=== PATIENT | male | born 1995 | race Caucasian/White ===

== ENCOUNTER 2023-05-08 09:05 | Emergency (ER) | payer OTHER ==
[~2023-05-08] VITALS: Ht 180 cm; Wt 99.7 kg
[2023-05-08] MEDS ORDERED: NS IV 1000 ML 1,000 ML IV STA (09:20)
--- NOTE | 2023-05-08 09:20 | ED Abdominal Pain ---
General Chief Complaint: Abdominal/GI Problems Stated Complaint: ABD PAIN Source of Information: Patient Exam Limitations: No Limitations History of Present Illness Date Seen by Provider: May 08, 2023 Time Seen by Provider: 09:06 Initial Comments 28-year-old male with no pertinent past medical history coming in due to right lower quadrant abdominal pain. Started over an hour prior to arrival, constant, sharp, radiates to his right groin. Nothing really seems to make it better or worse. He did take ibuprofen this morning. He does have nausea associated with it but no vomiting. Something similar occurred for short period of time a couple weeks ago, but never happened prior to that. Denies any diarrhea, rash, fever, dysuria, hematuria, flank pain, or any other concerns. Allergies and Home Medications Allergies Coded Allergies: No Known Drug Allergies (Unverified , 05/08/23) Patient Home Medication List Home Medication List Reviewed: Yes Hydrocodone/Acetaminophen (Hydrocodone-Acetamin 5-325 mg) 5 Mg-325 Mg Tablet, 1 TAB PO Q6H PRN for PAIN-MODERATE (5-7) Prescribed by: BRYSON HERNANDEZ on 05/08/23 1051 Ketorolac Tromethamine (Ketorolac Tromethamine) 10 Mg Tablet, 10 MG PO Q8H Prescribed by: BRYSON HERNANDEZ on 05/08/23 1050 Ondansetron (Ondansetron Odt) 4 Mg Tab.rapdis, 4 MG SL Q6H PRN for NAUSEA/VOMITING Prescribed by: BRYSON HERNANDEZ on 05/08/23 1050 Tamsulosin HCl (Flomax) 0.4 Mg Cap, 0.4 MG PO DAILY Prescribed by: BRYSON HERNANDEZ on 05/08/23 1050 Review of Systems Review of Systems Constitutional: No fever EENTM: No Symptoms Reported Respiratory: No Symptoms Reported Cardiovascular: No Symptoms Reported Gastrointestinal: See HPI Genitourinary: See HPI Musculoskeletal: no symptoms reported Skin: no symptoms reported Psychiatric/Neurological: No Symptoms Reported Endocrine: No Symptoms Reported Hematologic/Lymphatic: No Symptoms Reported Past Jzenifi-Quqhdh-Ljudpl Hx Patient Social History Tobacco Use?: No Substance use?: No Alcohol Use?: No Pt feels they are or have been: No Past Medical History Surgery/Hospitalization HX: n/a Physical Exam Vital Signs Vital Signs - First Documented 05/08/23 09:15 Temp 36.1 Pulse 71 Resp 16 B/P (MAP) 144/91 (108) Pulse Ox 100 Capillary Refill : Height/Weight/BMI Height: '" Weight: lbs. oz. kg; BMI Method: General Appearance: WD/WN, mild distress HEENT: PERRL/EOMI, normal ENT inspection, pharynx normal Neck: non-tender, full range of motion, supple, normal inspection Respiratory: chest non-tender, lungs clear, normal breath sounds, no respiratory distress, no accessory muscle use Cardiovascular: regular rate, rhythm, no edema, no murmur Gastrointestinal: normal bowel sounds, soft; No distended, No guarding, No rebound; tenderness (RLQ) Genital/Rectal: normal genital exam, other (No testicular swelling or pain) Extremities: normal range of motion, non-tender, normal inspection, no pedal edema, no calf tenderness, normal capillary refill Back: normal inspection, no CVA tenderness Neurologic/Psychiatric: no motor/sensory deficits, alert, normal mood/affect Skin: normal color, warm/dry Progress/Results/Core Measures Results/Orders Lab Results Laboratory Tests Test 05/08/23 09:33 05/08/23 10:02 Range/Units White Blood Count 5.7 4.3-11.0 10^3/uL Red Blood Count 5.45 4.30-5.52 10^6/uL Hemoglobin 15.6 13.3-17.7 g/dL Hematocrit 45 40-54 % Mean Corpuscular Volume 83 80-99 fL Mean Corpuscular Hemoglobin 29 25-34 pg Mean Corpuscular Hemoglobin Concent 34 32-36 g/dL Red Cell Distribution Width 11.9 10.0-14.5 % Platelet Count 272 130-400 10^3/uL Mean Platelet Volume 9.7 9.0-12.2 fL Immature Granulocyte % (Auto) 0 % Neutrophils (%) (Auto) 55 42-75 % Lymphocytes (%) (Auto) 34 12-44 % Monocytes (%) (Auto) 8 0-12 % Eosinophils (%) (Auto) 2 0-10 % Basophils (%) (Auto) 1 0-10 % Neutrophils # (Auto) 3.1 1.8-7.8 10^3/uL Lymphocytes # (Auto) 1.9 1.0-4.0 10^3/uL Monocytes # (Auto) 0.5 0.0-1.0 10^3/uL Eosinophils # (Auto) 0.1 0.0-0.3 10^3/uL Basophils # (Auto) 0.0 0.0-0.1 10^3/uL Immature Granulocyte # (Auto) 0.0 0.0-0.1 10^3/uL Prothrombin Time 13.4 12.2-14.7 SEC INR Comment 1.0 0.8-1.4 Activated Partial Thromboplast Time 23 L 24-35 SEC Sodium Level 137 135-145 MMOL/L Potassium Level 4.1 3.6-5.0 MMOL/L Chloride Level 106 98-107 MMOL/L Carbon Dioxide Level 20 L 21-32 MMOL/L Anion Gap 11 5-14 MMOL/L Blood Urea Nitrogen 15 7-18 MG/DL Creatinine 1.47 H 0.60-1.30 MG/DL Estimat Glomerular Filtration Rate 65 BUN/Creatinine Ratio 10 Glucose Level 129 H 70-105 MG/DL Calcium Level 9.6 8.5-10.1 MG/DL Corrected Calcium 9.2 8.5-10.1 MG/DL Total Bilirubin 1.1 H 0.1-1.0 MG/DL Aspartate Amino Transf (AST/SGOT) 23 5-34 U/L Alanine Aminotransferase (ALT/SGPT) 31 0-55 U/L Alkaline Phosphatase 57 40-136 U/L C-Reactive Protein High Sensitivity 0.12 0.00-0.50 MG/DL Total Protein 7.5 6.4-8.2 GM/DL Albumin 4.5 3.2-4.5 GM/DL Lipase 23 8-78 U/L Urine Color YELLOW Urine Clarity CLEAR Urine pH 8.5 5-9 Urine Specific [place] 1.020 1.016-1.022 Urine Protein 1+ H NEGATIVE Urine Glucose (UA) NEGATIVE NEGATIVE Urine Ketones NEGATIVE NEGATIVE Urine Nitrite NEGATIVE NEGATIVE Urine Bilirubin NEGATIVE NEGATIVE Urine Urobilinogen 0.2 < = 1.0 MG/DL Urine Leukocyte Esterase NEGATIVE NEGATIVE Urine RBC (Auto) 1+ H NEGATIVE Urine RBC 10-25 H /HPF Urine WBC 0-2 /HPF Urine Squamous Epithelial Cells RARE /HPF Urine Crystals NONE /LPF Urine Bacteria TRACE /HPF Urine Casts NONE /LPF Urine Mucus NEGATIVE /LPF Urine Culture Indicated NO My Orders Orders - KRUMSICK,BRYSON K MD Ed Iv/Invasive Line Start (05/08/23 09:17) Ct Abd/Pelv W (Appendicitis) (05/08/23 09:17) Cbc And Automated Diff (05/08/23 09:17) Comprehensive Metabolic Panel (05/08/23 09:17) Hs C Reactive Protein (05/08/23 09:17) Lipase (05/08/23 09:17) Protime With Inr (05/08/23:) Partial Thromboplastin Time (05/08/23 09:17) Ua Culture If Indicated (05/08/23 09:17) Morphine Injection (Morphine Injection (05/08/23 09:30) Ondansetron Injection (Ondansetron Inj (05/08/23 09:30) Ns Iv 1000 Ml (Ns Iv 1000 Ml) (05/08/23 09:20) Iohexol Injection (Omnipaque 350 Mg/Ml 1 (05/08/23 09:30) Received Contrast (Hold Metformin- Contr (05/08/23 09:30) Ns (Ivpb) 100 Ml (Sodium Chloride 0.9% 1 (05/08/23 09:30) Morphine Injection (Morphine Injection (05/08/23 10:36) Ketorolac Injection (Ketorolac Injection (05/08/23 10:45) Ondansetron Injection (Ondansetron Inj (05/08/23 10:50) Ondansetron Injection (Ondansetron Inj (05/08/23 11:00) Medications Given in ED Current Medications Medications Dose Ordered Sig/Maria D Route Start Time Stop Time Status Last Admin Dose Admin Iohexol 100 ml ONCE ONCE IV 05/08/23 09:30 05/08/23 09:31 DC 05/08/23 10:19 80 ML Ketorolac Tromethamine 15 mg ONCE ONCE IVP 05/08/23 10:45 05/08/23 10:46 DC 05/08/23 10:48 15 MG Morphine Sulfate 4 mg ONCE ONCE IVP 05/08/23 09:30 05/08/23 09:31 DC 05/08/23 09:30 4 MG Ondansetron HCl 4 mg ONCE ONCE IVP 05/08/23 09:30 05/08/23 09:31 DC 05/08/23 09:31 4 MG Ondansetron HCl 4 mg ONCE ONCE IVP 05/08/23 11:00 05/08/23 11:01 DC 05/08/23 10:58 4 MG Sodium Chloride 100 ml ONCE ONCE IV 05/08/23 09:30 05/08/23 09:31 DC 05/08/23 10:19 80 ML Vital Signs/I&O 05/08/23 05/08/23 09:15 11:05 Temp 36.1 Pulse 71 85 Resp 16 16 B/P (MAP) 144/91 (108) 122/79 Pulse Ox 100 98 Progress Progress Note : Progress Note 28-year-old male with above history coming in due to right lower quadrant pain radiating to his right groin. ABCs were intact and vitals were stable on presentation. Physical exam with some right lower quadrant pain, normal testicular exam. An IV is placed and basic labs were obtained and were significant for normal white blood cell count, urinalysis with blood but no evidence of infection, slightly elevated creatinine with normal GFR. CT abdomen pelvis ordered to assess for appendicitis versus atypical diverticulitis versus ureterolithiasis. On my interpretation there is a kidney stone with moderate hydronephrosis. He was given morphine IV x2, Zofran, IV fluids, and later Phe nergan for his pain. He was also given IV Toradol. Pain significantly improved. I discussed going through a trial of passage at home and following up with the urologist. Patient is agreeable to this. Prescriptions sent for symptomatic management at home. Diagnostic Imaging Diagonstic Imaging: CT (abd/pelvis) Comments [facility], [place] NAME: PATEL OGLESBY [facility] REC#: [id number] PT STATUS: REG ER : 1995 PHYSICIAN: BRYSON HERNANDEZ MD ADMIT DATE: 05/08/23/ER Signed Date of Exam:05/08/23 CT ABD/PELV W (APPENDICITIS) EXAMINATION: CT abdomen and pelvis with intravenous contrast. TECHNIQUE: Multiple contiguous axial images were obtained through the abdomen and pelvis after the uneventful administration of intravenous contrast. All CT scans use one or more of the following dose optimizing techniques: automated exposure control, MA and/or KvP adjustment based on patient size and exam type or iterative reconstruction. HISTORY: Right lower quadrant pain COMPARISON: None available. FINDINGS: Limited views of the lower thorax show bibasilar atelectasis. The liver is normal without focal lesion. There is no biliary ductal dilation. Gallbladder is normal. Pancreas is normal. Spleen is normal. Adrenal glands are normal. There is a 3.5 cm distal right ureteral stone with moderate right-sided hydroureteronephrosis and a delayed right-sided nephrogram. There are several nonobstructing stones in left kidney. No left-sided hydronephrosis. Urinary bladder is normal. Bowel is normal in caliber without obstruction or inflammation. No free fluid or air. No abdominal or pelvic lymphadenopathy. Aorta is normal in caliber without aneurysm. There are no suspicious osseus lesions. IMPRESSION: 1. Right distal ureteral 3.5 mm obstructing stone with moderate right-sided hydroureteronephrosis. Dictated by: Dictated on workstation # [id number] Dict: 05/08/23 1020 Trans: 05/08/23 1023 [facility] [id number] Interpreted by: WILLA FOLEY MD Electronically signed by: WILLA FOLEY MD 05/08/23 1023 Departure Impression Primary Impression: Ureterolithiasis Disposition: 01 HOME, SELF-CARE Condition: Stable Departure-Patient Inst. Decision time for Depature: 11:10 Referrals: Ernst GRANT MD NO,LOCAL PHYSICIAN (PCP) Primary Care Physician Patient Instructions: Kidney Stone, Adult ED Add. Discharge Instructions: You unfortunately have a 3-1/2 mm kidney stone at the far end of your ureter on the right side, about to pass into the bladder. This causes severe pain, nausea, vomiting. We would want you to do a trial of passage at home trying to get the stone to pass without surgery. Take the ketorolac as needed for pain, do not mix it with other NSAIDs such as ibuprofen. You can start ibuprofen again once this medicine runs out. If you have pain on top of that, you can take the hydrocodone. The ondansetron is for nausea. The tamsulosin is to theoretically help the stone pass easier. Follow-up with Dr. Grant here, or the urologist of your choice. We want you to present back to the ER if you develop fever or if the pain is way out of control despite taking your medicines. Scripts Ondansetron (Ondansetron Odt) 4 Mg Tab.rapdis 4 MG SL Q6H PRN for NAUSEA/VOMITING for 5 Days, #20 TAB Prov: BRYSON HERNANDEZ MD 05/08/23 Hydrocodone/Acetaminophen (Hydrocodone-Acetamin 5-325 mg) 5 Mg-325 Mg Tablet 1 TAB PO Q6H PRN for PAIN-MODERATE (5-7) for 4 Days, #16 TAB Prov: BRYSON HERNANDEZ MD 05/08/23 Ketorolac Tromethamine (Ketorolac Tromethamine) 10 Mg Tablet 10 MG PO Q8H for 4 Days, #12 TAB Prov: BRYSON HERNANDEZ MD 05/08/23 Tamsulosin HCl (Flomax) 0.4 Mg Cap 0.4 MG PO DAILY for 30 Days, #30 CAP Prov: BRYSON HERNANDEZ MD 05/08/23 Work/School Note: Work Release Form Date Seen in the Emergency Department: May 08, 2023 Return to Work: May 10, 2023 Restrictions: No Restrictions BRYSON HERNANDEZ MD May 08, 2023 09:20
[2023-05-08] MEDS ORDERED: IOHEXOL 350 MG/ML 100 ML (OMNIPAQUE 350) VIAL IV ONE (09:30)
[2023-05-08] MEDS ORDERED: HOLD METFORMIN - RECEIVED CONTRAST 20 ML VIAL IV SCH (09:30)
[2023-05-08] MEDS ORDERED: NS 100 ML (IVPB) BAG IV ONE (09:30)
[2023-05-08] MEDS ORDERED: morphine INJ 4 MG/ML 1 ML (VIAL/SYRINGE) IVP ONE (09:30)
[2023-05-08] MEDS ORDERED: ONDANSETRON INJECTION 4 MG/2 ML (SDV) IVP ONE ×2 (09:30→11:00)
[2023-05-08 09:39] LABS: BASOPHILS % (AUTO) 1 % (0-10); EOSINOPHILS # (AUTO) 0.1 10^3/uL (0.0-0.3); EOSINOPHILS % (AUTO) 2 % (0-10); HEMATOCRIT 45 % (40-54); HEMOGLOBIN 15.6 g/dL (13.3-17.7); LYMPHOCYTES # (AUTO) 1.9 10^3/uL (1.0-4.0); LYMPHOCYTES % (AUTO) 34 % (12-44); MEAN CORPUSCULAR HEMOGLOBIN 29 pg (25-34); MEAN CORPUSCULAR HGB CONC 34 g/dL (32-36); MEAN CORPUSCULAR VOLUME 83 fL (80-99); MEAN PLATELET VOLUME 9.7 fL (9.0-12.2); MONOCYTES # (AUTO) 0.5 10^3/uL (0.0-1.0); MONOCYTES % (AUTO) 8 % (0-12); NEUTROPHILS # (AUTO) 3.1 10^3/uL (1.8-7.8); NEUTROPHILS % (AUTO) 55 % (42-75); PLATELET COUNT 272 10^3/uL (130-400); WHITE BLOOD COUNT 5.7 10^3/uL (4.3-11.0)
[2023-05-08 09:49] LABS: ALBUMIN 4.5 GM/DL (3.2-4.5); POTASSIUM 4.1 MMOL/L (3.6-5.0)
[2023-05-08 09:50] LABS: CALCIUM 9.6 MG/DL (8.5-10.1); PROTHROMBIN TIME PATIENT 13.4 SEC (12.2-14.7)
[2023-05-08 09:52] LABS: TOTAL PROTEIN 7.5 GM/DL (6.4-8.2)
[2023-05-08 09:53] LABS: BILIRUBIN,TOTAL 1.1 MG/DL (0.1-1.0)
[2023-05-08 09:55] LABS: CREATININE SERUM 1.47 MG/DL (0.60-1.30)
[2023-05-08 10:16] LABS: COLOR,URINE YELLOW
[2023-05-08 10:17] LABS: BACTERIA,URINE TRACE /HPF; BILIRUBIN,URINE NEGATIVE (NEGATIVE); CLARITY,URINE CLEAR; GLUCOSE, URINE (UA) NEGATIVE (NEGATIVE); KETONES,URINE NEGATIVE (NEGATIVE); LEUKOCYTE ESTERASE ,URINE NEGATIVE (NEGATIVE); NITRITE,URINE NEGATIVE (NEGATIVE); PH,URINE 8.5 (5-9); PROTEIN,URINE 1+ (NEGATIVE); SQUAMOUS EPITHELIAL CELL,UR RARE /HPF; WBC,URINE 0-2 /HPF
--- NOTE | 2023-05-08 10:24 | Diagnostic Imaging Report ---
EXAMINATION: CT abdomen and pelvis with intravenous contrast. TECHNIQUE: Multiple contiguous axial images were obtained through the abdomen and pelvis after the uneventful administration of intravenous contrast. All CT scans use one or more of the following dose optimizing techniques: automated exposure control, MA and/or KvP adjustment based on patient size and exam type or iterative reconstruction. HISTORY: Right lower quadrant pain COMPARISON: None available. FINDINGS: Limited views of the lower thorax show bibasilar atelectasis. The liver is normal without focal lesion. There is no biliary ductal dilation. Gallbladder is normal. Pancreas is normal. Spleen is normal. Adrenal glands are normal. There is a 3.5 cm distal right ureteral stone with moderate right-sided hydroureteronephrosis and a delayed right-sided nephrogram. There are several nonobstructing stones in left kidney. No left-sided hydronephrosis. Urinary bladder is normal. Bowel is normal in caliber without obstruction or inflammation. No free fluid or air. No abdominal or pelvic lymphadenopathy. Aorta is normal in caliber without aneurysm. There are no suspicious osseus lesions. IMPRESSION: 1. Right distal ureteral 3.5 mm obstructing stone with moderate right-sided hydroureteronephrosis. Dictated by: Dictated on workstation # [id number]
[2023-05-08] MEDS ORDERED: morphine INJ 10 MG/ML 1ML (SYR OR VIAL) IVP STA (10:36)
[2023-05-08] MEDS ORDERED: PROMETHAZINE INJ 25 MG/ML VIAL IVP ONE (10:45)
[2023-05-08] MEDS ORDERED: KETOROLAC INJ 15 MG/ML VIAL IVP ONE (10:45)
[2023-05-08] MEDS ORDERED: ACHD5005 PO ×2 (10:50→11:36)
[2023-05-08] MEDS ORDERED: ONDA4TAB11 SL ×2 (10:50→11:36)
[2023-05-08] MEDS ORDERED: KETO10TA PO ×2 (10:50→11:36)
[2023-05-08] MEDS ORDERED: ONDANSETRON INJECTION 4 MG/2 ML (SDV) ONE (10:50)
[2023-05-08] MEDS ORDERED: TMSL.4C PO ×2 (10:50→11:36)
[2023-05-08 11:05] VITALS: BP 122/79
== END 2023-05-08 11:05 | disposition home or self-care (01) ==
LOC: EDUNIT# 09:05 → ER 09:07
DX: N13.2 Hydronephrosis with renal and ureteral calculous obstruction (principal)
CPT/HCPCS: 36415; 74177; 80053; 81000; 83690; 85025; 85610; 85730; 86141; 96361; 96374; 96375; 96376